=== PATIENT | female | born 1990 | race Caucasian/White ===

== ENCOUNTER 2018-06-25 16:36 | Emergency (ER) | payer SELFPAY ==
[2018-06-25 16:42] VITALS: BP 122/76
--- NOTE | 2018-06-25 17:02 | ER Document Report ---
ED Medical Screen (RME) - General Chief Complaint: Psych Problem Stated Complaint: PSYCH EVAL Time Seen by Provider: 06/25/18 16:59 - HPI Notes: 06/25/18 16:59 Patient is a 28-year-old female with a history of bipolar, PTSD who presents to the ED requesting to be placed back on medications. Patient states that she has been having visual and auditory hallucinations for the last year. She was medicated over the summer, but has been off medicines for 3 months because her Medicaid lapsed. No SI/HI. She is eating and drinking without difficulties. No other concerns or complaints. Denies any headache, fever, head injury, neck pain, changes in vision/speech/hearing, URI, sore throat, chest pain, palpitations, syncope, cough, shortness of breath, wheeze, dyspnea, abdominal pain, nausea/vomiting/diarrhea, urinary retention, dysuria, hematuria, loss of control of bowel or bladder, numbness/tingling, saddle anesthesia, muscle paralysis/weakness, or rash. I have treated and performed a rapid initial assessment of this patient. A comprehensive ED assessment and evaluation of the patient, analysis of test results and completion of medical decision making process will be conducted by additional ED providers. PHYSICAL EXAMINATION: GENERAL: Well-appearing, well-nourished and in no acute distress. A&Ox4. Answers questions appropriately. LUNGS: Breath sounds clear to auscultation bilaterally and equal. No wheezes rales or rhonchi. HEART: Regular rate and rhythm without murmurs, rubs, gallops. Extremities: No cyanosis, clubbing, or edema b/l. Cranial nerves grossly intact. NEUROLOGICAL: Normal speech, normal gait. PSYCH: flat affect - Related Data Allergies/Adverse Reactions: risperidone [From Risperdal] Allergy (Verified 06/25/18 16:51) Past Medical History - Social History Chew tobacco use (# tins/day): No Frequency of alcohol use: Occasional Drug Abuse: Methamphetamine Renal/ Medical History: Denies: Hx Peritoneal Dialysis Psychiatric Medical History: Reports: Hx Bipolar Disorder, Hx Depression Past Surgical History: Reports: Hx Tubal Ligation Physical Exam - Vital signs Vitals: Temp Pulse Resp BP Pulse Ox 98.1 F 95 18 122/76 93 06/25/18 16:40 06/25/18 16:40 06/25/18 16:40 06/25/18 16:40 06/25/18 16:40 Course - Vital Signs Vital signs: Temp Pulse Resp BP Pulse Ox 98.1 F 95 18 122/76 93 06/25/18 16:40 06/25/18 16:40 06/25/18 16:40 06/25/18 16:40 06/25/18 16:40
--- NOTE | 2018-06-25 17:55 | ER Document Report ---
ED Psych Disorder / Suicide - General Chief Complaint: Psych Problem Stated Complaint: PSYCH EVAL Time Seen by Provider: 06/25/18 16:59 Information source: Patient Notes: Patient is a 28-year-old female with past medical history of bipolar disorder, ADHD, and PTSD who presents today from [place] stating she has been out of her medications since March. Patient states she was homeless in [place] and was following a provider named Ashley Alonso. Patient states she was taking Seroquel, trazodone, and BuSpar but have been out of those medications in March secondary to losing her insurance. She states she just recently got back onto the "healthy [place] insurance plan". She states she was at [facility] in [place] and when they discharged her they brought her a bus ticket to [place] so that the patient could live with her father. She has been living with her father since arrival. Patient presents here voluntarily because she states she has been hearing some voices since March. She denies any command hallucinations, suicidal or homicidal ideations. She denies any pain other than to some irritation to her left ear for the last 2 days. She denies any fevers or vomiting, runny nose or congestion, sore throat or cough. - HPI Patient complains to provider of: Other - See above Onset: Other - See above Suicide Risk Factors: Other - See above Situational problems related to: Other - See above Associated symptoms: Other - See above Similar symptoms previously: Yes Recently seen / treated by doctor: No - Related Data Allergies/Adverse Reactions: risperidone [From Risperdal] Allergy (Verified 06/25/18 16:51) Past Medical History - Social History Smoking Status: Current Every Day Smoker Chew tobacco use (# tins/day): No Frequency of alcohol use: Occasional Drug Abuse: Methamphetamine Family History: Reviewed & Not Pertinent Patient has suicidal ideation: No Patient has homicidal ideation: No Renal/ Medical History: Denies: Hx Peritoneal Dialysis Psychiatric Medical History: Reports: Hx Bipolar Disorder, Hx Depression Past Surgical History: Reports: Hx Tubal Ligation Review of Systems - Review of Systems Constitutional: denies: Fever EENT: denies: Eye discharge, Nose discharge Respiratory: denies: Short of breath Gastrointestinal: denies: Vomiting Genitourinary: denies: Dysuria Musculoskeletal: denies: Leg swelling Skin: Other - no hives. denies: Rash Neurological/Psychological: Other - no slurred speech -: Yes All other systems reviewed and negative Physical Exam - Vital signs Vitals: Temp Pulse Resp BP Pulse Ox 98.1 F 95 18 122/76 93 06/25/18 16:40 06/25/18 16:40 06/25/18 16:40 06/25/18 16:40 06/25/18 16:40 Notes: Reviewed vital signs and nursing note as charted by RN. CONSTITUTIONAL: Alert and oriented and responds appropriately to questions. Well -appearing; well-nourished HEAD: Normocephalic; atraumatic EYES: PERRL; Conjunctivae clear, sclerae non-icteric ENT: Normal nose; no rhinorrhea; no external auditory canal lesions; no tympanic membrane lesions; no mastoid tenderness or swelling moist mucous membranes; pharynx without lesions noted NECK: Supple without meningismus; non-tender; no cervical lymphadenopathy, no masses CARD: Regular rate and rhythm; no murmurs; symmetric distal pulses RESP: Normal chest excursion without splinting or tachypnea; breath sounds clear and equal bilaterally; no wheezes, no rhonchi, no rales ABD/GI: Normal bowel sounds; non-distended; soft, non-tender; no palpable organomegaly or masses BACK: The back appears normal and is non-tender to palpation EXT: Normal ROM in all joints; non-tender to palpation; no edema SKIN: No acute lesions noted NEURO: CN 2-12 intact; 5/5 bilateral upper and lower extremity strength with sensation intact to light touch PSYCH: The patient's mood and manner are appropriate. Grooming and personal hygiene are appropriate. Course - Re-evaluation Re-evalutation: 06/25/18 17:54 Given the above history and physical examination I do not believe the patient requires an EKG at this time. Dr. Orellana, the head of the psychology/ psychiatry department here has seen and assessed the patient. She would like to start the patient on her previous medications as well as a low-dose Zyprexa twice a day and have the patient sleep you voluntarily overnight and reassess in the morning. We both believe that if the patient feels better in the morning , patient can be discharged home on the prescriptions with outpatient follow-up that we will help arrange through [facility]. - Vital Signs Vital signs: Temp Pulse Resp BP Pulse Ox 98.1 F 95 18 122/76 93 06/25/18 16:40 06/25/18 16:40 06/25/18 16:40 06/25/18 16:40 06/25/18 16:40
[2018-06-25] MEDS ORDERED: OLANZAPINE 2.5 MG TABLET PO SCH (18:00)
[2018-06-25] MEDS ORDERED: BUSPIRONE HCL 10 MG TABLET PO SCH (18:00)
[2018-06-25 18:16] LABS: ABSOLUTE EOSINOPHILS # (AUTO) 0.1 10^3/uL (0.0-0.6); ABSOLUTE LYMPHOCYTES (AUTO) 2.8 10^3/uL (0.5-4.7); ABSOLUTE MONOCYTES (AUTO) 0.6 10^3/uL (0.1-1.4); ABSOLUTE NEUT (AUTO) 3.6 10^3/uL (1.7-8.2); BASOPHILS % (AUTO) 0.4 % (0-2); HEMATOCRIT 37.2 % (36.0-47.0); HEMOGLOBIN 12.9 g/dL (12.0-15.5); LYMPHOCYTES % (AUTO) 38.8 % (13-45); MEAN CORPUSCULAR HEMOGLOBIN 34.7 pg (27.0-33.4); MEAN CORPUSCULAR HGB CONC 34.7 g/dL (32.0-36.0); MEAN CORPUSCULAR VOLUME 100 fl (80-97); MONOCYTES % (AUTO) 8.8 % (3-13); PLATELET COUNT 371 10^3/uL (150-450); RED BLOOD COUNT 3.72 10^6/uL (3.72-5.28); TOTAL CELLS COUNTED % (AUTO) 100 %; WHITE BLOOD COUNT 7.2 10^3/uL (4.0-10.5)
[2018-06-25] MEDS ORDERED: OLANZAPINE 2.5 MG TABLET ONE (18:24)
--- NOTE | 2018-06-25 18:26 | PSYCHOLOGICAL NOTE ---
Psych Note - Psych Note Date seen by psych provider: 06/25/18 Time seen by psych provider: 17:30 Psych Note: Met with Patient who was brought in by [facility] (Neil Jose), not on papers, after Neil responded and found that Patient has been off her medication for at least one month for Schizophrenia. She reportedly had been binging on Crystal meth with her last use last Wednesday. She has been reportedly hearing voices telling her to harm herself. She recently moved to [place] after the hospital she was in as a Patient in [place] bought her a bus ticket to [place] to be with her father. Patient reported the voices are mild but bothersome and she very much wants to get back on her medications. She indicated her most recent medications included Buspar 5 mg three times per day, Trazadone 100 mg at nedtime and Seroquel 100 mg at bedtime. She reported she has not slept for three nights and is anxious to retart the medications. She stated she will follow up with [facility] upon discharge. Spoke with Yessi Garcia of [facility] who reported the same information that Patient provided. He indicated [facility] will continue to work with Patient and to call [facility]ypon discharge as they will provide transportation. She will see their medication provider upon discharge for ongoing treatment. Patient was alert and oriented to person, place, time, and circumstance. Mood was cooperative and euthymic, with mood congruent affect. She denied suicidal / homicidal ideation, intent or plan. She reported auditory hallucinations but denied visual hallucinations and delusions were absent. Thought processes were linear, rational, and organized. Conversational speech was within normal limits for rate, tone, and prosody. Intellectual abilities were estimated within the average range. Attention and concentration was within normal limits while insight, judgment and impulse control was fair. Patient maintained good eye contact but looked very tired. 1. Schizophrenia by history 2. Methamphetamine Use Disorder, Moderate, Recurrent Medication Recommendation by Psychiatric Provider: 1. Buspar 5 mg twice per day 2. Trazadone 100 mg at bedtime 3. Seroquel 100 mg at bedtime Of note, Patient is allergic to risperdone Impression/ Plan: Patient is voluntary and agreed to stay the night for observation with the initiation of medications. She is cooperative and agreed to current medication regiment. Evaluation took place with Dr. Pelayo, attending ED Physician present. Plan is for Patient to take first doses of medication, be observed overnight and be re-evaluated in the morning. If feeling better, she will be provided crisis numbers and substance abuse information and referred back to [facility] with scripts. ED Physician in agreement with disposition and recommendations.
[2018-06-25 18:36] LABS: ALANINE AMINOTRANSFERASE 25 U/L (9-52); ALBUMIN 4.2 g/dL (3.5-5.0); ALKALINE PHOSPHATASE 22 U/L (38-126); ANION GAP 11 (5-19); ASPARTATE AMINO TRANSFERASE 31 U/L (14-36); BILIRUBIN,DIRECT 0.1 mg/dL (0.0-0.4); BILIRUBIN,TOTAL 0.2 mg/dL (0.2-1.3); BLOOD UREA NITROGEN 10 mg/dL (7-20); CALCIUM 9.2 mg/dL (8.4-10.2); CARBON DIOXIDE 26 mmol/L (22-30); CHLORIDE 105 mmol/L (98-107); GLUCOSE 81 mg/dL (75-110); POTASSIUM 4.1 mmol/L (3.6-5.0); SODIUM 142.4 mmol/L (137-145)
[2018-06-25 18:40] LABS: ACETAMINOPHEN < 10 ug/mL (10-30); ALCOHOL < 10 mg/dL (NONE DETECTED); SALICYLATE < 1.0 mg/dL (2.0-20.0)
[2018-06-25 19:05] LABS: AMORPHOUS SEDIMENT,URINE TRACE /HPF; APPEARANCE,URINE SLIGHTLY-CLOUDY; BILIRUBIN,URINE NEGATIVE (NEGATIVE); COLOR,URINE YELLOW; GLUCOSE, URINE NEGATIVE (NEGATIVE); KETONES,URINE NEGATIVE (NEGATIVE); LEUKOCYTE ESTERASE,URINE NEGATIVE (NEGATIVE); NITRITE,URINE NEGATIVE (NEGATIVE); PROTEIN,URINE 30 mg/dL (NEGATIVE); URINE SPECIFIC GRAVITY 1.018; UROBILINOGEN,URINE NEGATIVE mg/dL (<2.0)
[2018-06-25 19:16] LABS: URINE AMPHETAMINES SCREEN NEGATIVE; URINE BARBITURATES SCREEN NEGATIVE; URINE BENZODIAZEPINES SCREEN NEGATIVE; URINE COCAINE SCREEN NEGATIVE; URINE MARIJUANA (THC) SCREEN NEGATIVE; URINE METHADONE SCREEN NEGATIVE; URINE PHENCYCLIDINE SCREEN NEGATIVE
[2018-06-25] MEDS ORDERED: BENZTROPINE MESYLATE 1 MG TABLET PO SCH (22:00)
[2018-06-25] MEDS ORDERED: TRAZODONE HCL 50 MG TABLET PO SCH (22:00)
[2018-06-25] MEDS ORDERED: QUETIAPINE FUMARATE 100 MG TABLET PO SCH (22:00)
== END 2018-06-25 20:15 | disposition left against medical advice (07) ==
LOC: ER 16:36
DX: F20.9 Schizophrenia, unspecified (principal); T43.596A Underdosing of other antipsychotics and neuroleptics, initial encounter; F31.9 Bipolar disorder, unspecified; T43.216A Underdosing of selective serotonin and norepinephrine reuptake inhibitors, initial encounter; Z91.120 Patient's intentional underdosing of medication regimen due to financial hardship; Z91.14 Patient's other noncompliance with medication regimen; Z53.20 Procedure and treatment not carried out because of patient's decision for unspecified reasons; F15.10 Other stimulant abuse, uncomplicated; F17.200 Nicotine dependence, unspecified, uncomplicated; Z88.8 Allergy status to other drugs, medicaments and biological substances
CPT/HCPCS: 99285; 36415; 80307 ×4; 84703; 85025; 80053; 81001; J3490

== ENCOUNTER 2018-06-30 15:03 | Emergency (ER) | payer SELFPAY ==
--- NOTE | 2018-06-30 16:08 | ER Document Report ---
ED Psych Disorder / Suicide - General Mode of Arrival: Ambulatory TRAVEL OUTSIDE OF THE [place] IN LAST 30 DAYS: No <ELEONORA FREY - Last Filed: 06/30/18 22:41> <DAVIDA SHEPARD - Last Filed: 07/01/18 12:30> <TAYLOR FARAH - Last Filed: 07/01/18 12:52> - General Chief Complaint: Psych Problem Stated Complaint: PSYCH CONSULT Time Seen by Provider: 06/30/18 15:30 - HPI Notes: Patient is a 28-year-old female presenting to the emergency room complaining of worsening anxiety with auditory hallucinations, states that she hears voices all the time, "the writing is on the rai", when I asked her what the voices were saying to her she stated "I do not want to talk about that right now", she denies being in any type of mental health program at this point in time or taking any medications, she denies any pain anywhere, no nausea, vomiting or diarrhea, denies being (ELEONORA FREY) - Related Data Allergies/Adverse Reactions: risperidone [From Risperdal] Allergy (Verified 06/30/18 15:07) Past Medical History - General Information source: Patient - Social History Smoking Status: Current Every Day Smoker Chew tobacco use (# tins/day): No Frequency of alcohol use: None Drug Abuse: None Family History: Reviewed & Not Pertinent Patient has suicidal ideation: No Patient has homicidal ideation: Yes Renal/ Medical History: Denies: Hx Peritoneal Dialysis Psychiatric Medical History: Reports: Hx Bipolar Disorder, Hx Depression Past Surgical History: Reports: Hx Tubal Ligation <ELEONORA FREY - Last Filed: 06/30/18 22:41> Review of Systems - Review of Systems Constitutional: No symptoms reported EENT: No symptoms reported Cardiovascular: No symptoms reported Respiratory: No symptoms reported Gastrointestinal: No symptoms reported Genitourinary: No symptoms reported Female Genitourinary: No symptoms reported Musculoskeletal: No symptoms reported Skin: No symptoms reported Hematologic/Lymphatic: No symptoms reported Neurological/Psychological: See HPI -: Yes All other systems reviewed and negative <ELEONORA FREY - Last Filed: 06/30/18 22:41> Physical Exam - Vital signs Interpretation: Tachycardic - General General appearance: Appears well, Alert - HEENT Head: Normocephalic, Atraumatic Eyes: Normal Pupils: PERRL - Respiratory Respiratory status: No respiratory distress Chest status: Nontender Breath sounds: Normal Chest palpation: Normal - Cardiovascular Rhythm: Regular Heart sounds: Normal auscultation Murmur: No - Abdominal Inspection: Normal Distension: No distension Bowel sounds: Normal Tenderness: Nontender Organomegaly: No organomegaly - Back Back: Normal, Nontender - Extremities General upper extremity: Normal inspection, Nontender, Normal color, Normal ROM , Normal temperature General lower extremity: Normal inspection, Nontender, Normal color, Normal ROM , Normal temperature, Normal weight bearing. No: Ron's sign - Neurological Neuro grossly intact: Yes Cognition: Normal Orientation: AAOx4 [place] Coma Scale Eye Opening: Spontaneous [place] Coma Scale Verbal: Oriented [place] Coma Scale Motor: Obeys Commands [place] Coma Scale Total: 15 Speech: Normal Motor strength normal: LUE, RUE, LLE, RLE Sensory: Normal - Psychological Associated symptoms: Anxious, Labile - Skin Skin Temperature: Warm Skin Moisture: Dry Skin Color: Normal <ELEONORA FREY - Last Filed: 06/30/18 22:41> - Vital signs Vitals: Temp Pulse Resp BP Pulse Ox 98.3 F 106 H 18 123/70 97 06/30/18 15:19 06/30/18 15:19 06/30/18 15:19 06/30/18 15:19 06/30/18 15:19 Course - Laboratory Result Diagrams: 06/30/18 15:44 06/30/18 15:44 - EKG Interpretation by Tx EKG shows normal: Sinus rhythm Rate: Normal Rhythm: NSR <ELEONORA FREY - Last Filed: 06/30/18 22:41> - Laboratory Result Diagrams: 06/30/18 15:44 06/30/18 15:44 <DAVIDA SHEPARD - Last Filed: 07/01/18 12:30> - Laboratory Result Diagrams: 06/30/18 15:44 06/30/18 15:44 <TAYLOR FARAH - Last Filed: 07/01/18 12:52> - Re-evaluation Re-evalutation: 06/30/18 22:41 Patient seen and evaluated by mental health team who recommend involuntary commitment for further evaluation and treatment, paperwork has been signed and placed on the chart, medications have been ordered, patient will remain in the department until mental health team can come up with an appropriate and safe plan for her disposition (ELEONORA FREY) - Vital Signs Vital signs: Temp Pulse Resp BP Pulse Ox 98.2 F 73 16 188/66 H 98 07/01/18 03:31 07/01/18 03:31 07/01/18 03:31 07/01/18 03:31 07/01/18 03:31 - Laboratory Laboratory results interpreted by me: 06/30/18 06/30/18 06/30/18 15:44 15:44 15:44 RBC 3.71 L MCV 100 H MCH 34.5 H Sodium 145.1 H Chloride 108 H Alkaline Phosphatase 24 L Urine Protein 30 H Urine Blood LARGE H Urine Urobilinogen 2.0 H Ur Leukocyte Esterase SMALL H Salicylates < 1.0 L Acetaminophen < 10 L Discharge <ELEONORA FREY - Last Filed: 06/30/18 22:41> <DAVIDA SHEPARD - Last Filed: 07/01/18 12:30> <TAYLOR FARAH - Last Filed: 07/01/18 12:52> - Discharge Clinical Impression: Mental health disorder, Schizophrenia Condition: Stable Disposition: HOME, SELF-CARE Additional Instructions: You have been evaluated both medical and behavioral health teams have been deemed appropriate for discharge. You have been started on medications and have been provided prescriptions for Buspar 5 mg twice per day, Trazadone 100 mg at bedtime and Seroquel 100 mg at bedtime; please take as directed. You are encouraged to follow-up with [facility] in 3-5 days for continued outpatient mental health services. Hallucinations You seem to be having hallucinations. Hallucinations are seeing, hearing, or feeling things that don't exist. These symptoms commonly occur with drug abuse and schizophrenia. Drugs like PCP, LSD, MDMA, peyote, and "psychedelic mushrooms" can cause frightening hallucinations. Users of methamphetamine or crack cocaine often see and feel bugs crawling on their skin. Patients with schizophrenia may hear voices that no one else can hear. The delusions of schizophrenia often involve conspiracies or relationships that are not real. When symptoms are due to drug abuse, the mental state usually improves as the drug wears off. Someone you trust should be with you until you are better, to protect you and calm your fears. Tranquilizer medicine is helpful at controlling hallucinations, anxiety, and deluded thoughts. Get a proper diet and enough sleep. Most patients do very well when they get proper medical treatment and social support. You should return at once if your symptoms get worse, if you are having suicidal thoughts or thoughts about hurting others, or if you feel that you are in danger. Prescriptions: Quetiapine Fumarate [Seroquel 100 mg Tablet] 100 mg PO QHS #7 tablet Trazodone HCl 100 mg PO QHS #7 tablet Buspirone HCl [Buspar 5 mg Tablet] 1 tab PO BID #15 tab Referrals: [facility] [Outside] - Follow up as needed [facility] [Outside] - Follow up in 3-5 days
[2018-06-30 16:20] LABS: ABSOLUTE EOSINOPHILS # (AUTO) 0.1 10^3/uL (0.0-0.6); ABSOLUTE LYMPHOCYTES (AUTO) 2.4 10^3/uL (0.5-4.7); ABSOLUTE MONOCYTES (AUTO) 0.6 10^3/uL (0.1-1.4); ABSOLUTE NEUT (AUTO) 4.8 10^3/uL (1.7-8.2); BASOPHILS % (AUTO) 0.3 % (0-2); EOSINOPHILS % (AUTO) 1.7 % (0-6); HEMATOCRIT 37.1 % (36.0-47.0); HEMOGLOBIN 12.8 g/dL (12.0-15.5); LYMPHOCYTES % (AUTO) 30.1 % (13-45); MEAN CORPUSCULAR HEMOGLOBIN 34.5 pg (27.0-33.4); MEAN CORPUSCULAR HGB CONC 34.5 g/dL (32.0-36.0); MEAN CORPUSCULAR VOLUME 100 fl (80-97); PLATELET COUNT 440 10^3/uL (150-450); RED BLOOD COUNT 3.71 10^6/uL (3.72-5.28); RED CELL DISTRIBUTION WIDTH 12.7 % (11.5-14.0); SEGMENTED NEUTROPHILS % (AUTO) 59.9 % (42-78); TOTAL CELLS COUNTED % (AUTO) 100 %; WHITE BLOOD COUNT 7.9 10^3/uL (4.0-10.5)
[2018-06-30 16:27] LABS: ALANINE AMINOTRANSFERASE 21 U/L (9-52); ALBUMIN 4.5 g/dL (3.5-5.0); ALKALINE PHOSPHATASE 24 U/L (38-126); ANION GAP 11 (5-19); ASPARTATE AMINO TRANSFERASE 26 U/L (14-36); BILIRUBIN,DIRECT 0.1 mg/dL (0.0-0.4); BILIRUBIN,TOTAL 0.3 mg/dL (0.2-1.3); BLOOD UREA NITROGEN 12 mg/dL (7-20); CALCIUM 9.7 mg/dL (8.4-10.2); CARBON DIOXIDE 26 mmol/L (22-30); CHLORIDE 108 mmol/L (98-107); GLUCOSE 99 mg/dL (75-110); POTASSIUM 4.8 mmol/L (3.6-5.0); SODIUM 145.1 mmol/L (137-145); TOTAL PROTEIN 7.3 g/dL (6.3-8.2)
[2018-06-30 16:29] LABS: ACETAMINOPHEN < 10 ug/mL (10-30); ALCOHOL < 10 mg/dL (NONE DETECTED); SALICYLATE < 1.0 mg/dL (2.0-20.0)
[2018-06-30 16:31] LABS: APPEARANCE,URINE CLOUDY; BILIRUBIN,URINE NEGATIVE (NEGATIVE); COLOR,URINE YELLOW; GLUCOSE, URINE NEGATIVE (NEGATIVE); KETONES,URINE NEGATIVE (NEGATIVE); LEUKOCYTE ESTERASE,URINE SMALL (NEGATIVE); NITRITE,URINE NEGATIVE (NEGATIVE); PROTEIN,URINE 30 mg/dL (NEGATIVE); URINE SPECIFIC GRAVITY 1.023
--- NOTE | 2018-06-30 16:32 | PSYCHOLOGICAL NOTE ---
Psych Note - Psych Note Date seen by psych provider: 06/30/18 Time seen by psych provider: 16:15 Psych Note: Reason for Consult: Command auditory hallucinations Patient is a 28-year-old female presenting to the emergency room complaining of worsening anxiety with auditory hallucinations Patient reports that she sometimes thinks of harming herself stating "life is suicide." When asked about thoughts of harming others and she stated "no yes sometimes my dad when he was younger." She reports that she has been sober for 2 months from methamphetamines stating "I am sobriety." She states that she has been in multiple inpatient psychiatric treatments since 4 years old. She endorses auditory hallucinations reporting that they bother her. She reports that there are many of both genders and depending on which way she is looking depends on what they say to her. She also reports that it also depends on who she is talking to him what they are saying. Patient is alert and orientated to person, place, time and circumstance. Mood is euthymic with restricted affect. Patient discloses both suicidal and homicidal ideation that comes and goes. When asked that she has a plan she states "sometimes." Patient reports command auditory hallucinations. She reports that it depends on which direction she is looking in who she is talking to on what they say. Patient reports 2 weeks of sobriety. Patient appears very tired with dark circles under her eyes. Speech is slightly pressured. Patient is making poor eye contact and is noted to be looking around the room specifically up into the corner. Intellectual abilities appear to be within the average range. Attention and concentration are poor. Insight, judgment, impulse control are currently poor. Medication Recommendation by Psychiatric Provider: 1. Buspar 5 mg twice per day 2. Trazadone 100 mg at bedtime 3. Seroquel 100 mg at bedtime Diagnosis 1. 295.90 (F20.9) Schizophrenia by history 2. 304.40 (F15.20) Methamphetamine Use Disorder, Moderate, Recurrent Impression/Plan: Patient is recommended for IVC. She reports command auditory hallucinations telling she to kill people. When patient is asked if she has thoughts of harming herself she states sometimes then states "life is suicide." Patient is demonstrating slightly pressured speech and difficulty in an organized linear conversation with times of odd comments. Patient's eye contact is poor and is noted to be looking around the room specifically multiple times in the corner ceiling area. Medication recommendations have been provided; patient will be reevaluated. Dr. Orellana was consulted and the care and management of this patient; attending physicians in agreement with recommendations and disposition.
[2018-06-30 16:43] LABS: URINE AMPHETAMINES SCREEN NEGATIVE; URINE BARBITURATES SCREEN NEGATIVE; URINE BENZODIAZEPINES SCREEN NEGATIVE; URINE COCAINE SCREEN NEGATIVE; URINE MARIJUANA (THC) SCREEN NEGATIVE; URINE METHADONE SCREEN NEGATIVE; URINE PHENCYCLIDINE SCREEN NEGATIVE
[2018-06-30] MEDS: BUSPIRONE HCL 10 MG TABLET PO SCH (17:32)
--- NOTE | 2018-06-30 19:03 | EKG REPORT ---
SEVERITY:- NORMAL ECG - SINUS RHYTHM : Confirmed by: Jad Chavarria MD 30-Jun-2018 19:02:38
[2018-06-30] MEDS ORDERED: TRAZODONE HCL 50 MG TABLET PO SCH (22:00)
[2018-06-30] MEDS ORDERED: QUETIAPINE FUMARATE 100 MG TABLET PO SCH (22:00)
[2018-07-01] MEDS: BUSPIRONE HCL 10 MG TABLET PO SCH (09:56)
[2018-07-01 13:01] VITALS: BP 128/70
--- NOTE | 2018-07-01 15:44 | PSYCHOLOGICAL NOTE ---
Psych Note - Psych Note Date seen by psych provider: 07/01/18 Time seen by psych provider: 07:45 Psych Note: Reason for Consult: Command auditory hallucinations Patient is a 28-year-old female presenting to the emergency room complaining of worsening anxiety with auditory hallucinations Check in conducted with patient Patient reports that she slept well last night however feels still tired. When asked if she has had any more events of hearing voices she states no disclosing the last time was yesterday before coming into [facility] ED. Patient denies current thoughts of suicidal ideation or homicidal ideation 1 asked by her statements of wanting to harm others she reports that she did not mean that she would hurt anybody only that sometimes she gets so frustrated she wants to hurt somebody because of the voices. She states she is ready to continue her medications and go with her follow-up appointments with [facility]. Patient's speech was normal rate tone and prosody. She had good eye contact with organized and linear thought processes. Medication Recommendation by Psychiatric Provider: 1. Buspar 5 mg twice per day 2. Trazadone 100 mg at bedtime 3. Seroquel 100 mg at bedtime Diagnosis 1. 295.90 (F20.9) Schizophrenia by history 2. 304.40 (F15.20) Methamphetamine Use Disorder, Moderate, Recurrent Impression/Plan: Patient is recommended for rescind of IVC and is cleared from acute psychiatric services. Patient denies thoughts of wanting to harm herself or others. She reports she has not had any difficulties with hearing voices since arriving to [facility] and recieving medications. There are no behaviours indicating she is responding to internal stimuli as the patient's speech was within normal rate, tone and prosody she had a good eye contact with organized and linear conversations. She reports that she will continue taking the medication will follow up with outpatient mental health services through [facility]. Dr. Orellana was consulted and the care and management of this patient; attending physicians in agreement with recommendations and disposition.
== END 2018-07-01 13:01 | disposition home or self-care (01) ==
LOC: ER 15:03
DX: F99 Mental disorder, not otherwise specified (principal); F20.9 Schizophrenia, unspecified; F41.9 Anxiety disorder, unspecified; F17.200 Nicotine dependence, unspecified, uncomplicated
CPT/HCPCS: 36415; 80053; 80307; 81001; 85025; 93005; 93010; 99285

== ENCOUNTER 2019-02-18 04:44 | Emergency (ER) | payer SELFPAY ==
--- NOTE | 2019-02-18 06:14 | ER Document Report ---
HPI - HPI Time Seen by Provider: 02/18/19 06:06 Pain Level: 5 Context: Patient is a 28-year-old female who presents to the emergency department with a chief complaint of a toothache to tooth #14. Patient states that the tooth has been bothering her for the past 3 weeks. [facility], but has not been able to get an appointment. She states that she has been taking ibuprofen and Tylenol and has been helping with the pain, but yesterday she felt the tip of her tooth come out and continues to have pain. Patient is a current everyday smoker. She is currently on Seroquel, trazodone, buspirone. - ROS Notes: REVIEW OF SYSTEMS: CONSTITUTIONAL : Denies recent illness. Denies recent unintentional weight loss. Denies fever, chills, or sweats. EENT: See HPI CARDIOVASCULAR: Denies chest pain. RESPIRATORY: Denies shortness of breath, cough, congestion, difficulty breathing, or wheezing. GASTROINTESTINAL: Denies nausea, vomiting, and diarrhea. Denies abdominal pain. Denies constipation. GENITOURINARY: Denies difficulty urinating, burning, blood in urine, urgency or frequency. MUSCULOSKELETAL: Denies neck and back pain. Denies joint pain or swelling. SKIN: Denies rash, itchiness, or lesions HEMATOLOGIC : Denies easy bruising or bleeding. LYMPHATIC: Denies swollen, painful, enlarged glands. NEUROLOGICAL: Denies no numbness or tingling denies weakness. Denies headache. Denies altered mental status. Denies alteration in speech. PSYCHIATRIC: Denies stress, anxiety, alteration in sleep patterns, or depression. All other systems reviewed and negative. - REPRODUCTIVE Reproductive: DENIES: : Past Medical History - General Information source: Patient - Social History Smoking Status: Current Every Day Smoker Chew tobacco use (# tins/day): No Frequency of alcohol use: None Drug Abuse: None Family History: Reviewed & Not Pertinent Patient has suicidal ideation: No Patient has homicidal ideation: No Renal/ Medical History: Denies: Hx Peritoneal Dialysis Psychiatric Medical History: Reports: Hx Bipolar Disorder, Hx Depression Past Surgical History: Reports: Hx Tubal Ligation Vertical Provider Document - CONSTITUTIONAL Notes: PHYSICAL EXAMINATION: GENERAL: Appears well, healthy, well-nourished, no acute distress. HEAD: Normocephalic, atraumatic. EYES: PERRL, conjunctiva normal, all extraocular movements intact, sclera nonicteric ENT: Moist mucous membranes. Tenderness noted to tooth #14. NECK: Supple, no noticeable swelling, redness, rash. Normal range of motion. LUNGS: Equal breath sounds bilaterally and clear to auscultation. No wheezes rales or rhonchi. CARDIOVASCULAR: S1-S2, regular rate, regular rhythm. Radial pulses 2+, normal. PSYCH: Normal mood, normal affect. SKIN: Warm, dry. No rash, lesions, ulcerations noted. Normal skin turgor. - INFECTION CONTROL TRAVEL OUTSIDE OF THE [place] IN LAST 30 DAYS: No Course - Re-evaluation Re-evalutation: 02/18/19 06:14 Patient's physical exam and history is most consistent with a infected tooth. Patient is able to swallow, no facial swelling noted, airways pain, vital signs are normal. I do not suspect Raúl's angina, peritonsilar abscess, or airway obstruction. The patient will be started on oral antibiotics. I have given the patient education on their antibiotics. Patient was given instructions to follow-up with a dentist this week. Return precautions were given. Verbal discharge instructions were given. Patient verbalized understanding. Patient is stable for discharge. - Vital Signs Vital signs: Temp Pulse Resp BP Pulse Ox 98.1 F 85 16 115/61 98 02/18/19 04:48 02/18/19 04:48 02/18/19 04:48 02/18/19 04:48 02/18/19 04:48 Discharge - Discharge Clinical Impression: Toothache Condition: Stable Disposition: HOME, SELF-CARE Instructions: Toothache ([facility]) Additional Instructions: You have been seen in the emergency department for a toothache. You may take ibuprofen 600 mg and Tylenol 1000 mg every 6 hours as needed for the pain. You have also been given topical lidocaine. Placed that to the affected tooth as needed to help with pain. You have also been prescribed antibiotics. Please take the antibiotics as prescribed, even if you start to feel better. If you develop a fever greater than 100.4 F, or have any symptoms that are worrisome to you, please return to the emergency department. Please follow-up with a dentist this week in regards to your visit. Prescriptions: Penicillin V Potassium [Penicillin Vk 500 mg Tablet] 500 mg PO BID #20 tablet
[2019-02-18] MEDS ORDERED: LIDOCAINE 2% VISCOUS SOLN 20 ML UDCUP PO ONE (06:16)
[2019-02-18] MEDS ORDERED: PENICILLIN V POTASSIUM 500 MG TABLET PO ONE (06:16)
[2019-02-18 07:27] VITALS: BP 105/62
== END 2019-02-18 06:34 | disposition home or self-care (01) ==
LOC: ER 04:44
DX: K08.9 Disorder of teeth and supporting structures, unspecified (principal); F17.200 Nicotine dependence, unspecified, uncomplicated; Z98.51 Tubal ligation status
CPT/HCPCS: 99282; J3490

== ENCOUNTER 2020-05-12 17:30 | Emergency (ER) | payer SELFPAY ==
[2020-05-12 17:38] VITALS: BP 82/66
--- NOTE | 2020-05-12 18:05 | ER Document Report ---
HPI - HPI Patient complains to provider of: right ear pain Time Seen by Provider: 05/12/20 17:58 Pain Level: 3 Context: 29-year-old female with no previous medical problems presents to the emergency room complaining of right ear pain for the past week. Denies any fevers. Denies any trauma or injury. No recent swimming or flying. States she has been using hydrogen peroxide without relief. No recent antibiotics. Denies any antibiotics. Associated Symptoms: None Exacerbated by: Denies Relieved by: Denies Similar symptoms previously: No Recently seen / treated by doctor: No - ROS Systems Reviewed and Negative: Yes All other systems reviewed and negative - CONSTITUTIONAL Constitutional: DENIES: Fever - EENT EENT: REPORTS: Ear Pain. DENIES: Sore Throat - NEURO Neurology: DENIES: Headache - RESPIRATORY Respiratory: DENIES: Trouble Breathing, Coughing - REPRODUCTIVE Reproductive: DENIES: : Past Medical History - General Information source: Patient - Social History Smoking Status: Current Every Day Smoker Frequency of alcohol use: None Drug Abuse: None Family History: Reviewed & Not Pertinent Renal/ Medical History: Denies: Hx Peritoneal Dialysis Psychiatric Medical History: Reports: Hx Bipolar Disorder, Hx Depression Past Surgical History: Reports: Hx Tubal Ligation Vertical Provider Document - CONSTITUTIONAL Agree With Documented VS: Yes Exam Limitations: No Limitations General Appearance: Mild Distress - INFECTION CONTROL TRAVEL OUTSIDE OF THE [place] IN LAST 30 DAYS: No - HEENT HEENT: Atraumatic, Normocephalic, Tympanic Membrane Red, Tympanic Membrane Bulging - Right tympanic membranes is erythematous and bulging. Right outer ear canal erythematous and swelling but no active discharge or draining noted. Left tympanic membrane is intact. Left outer ear canal without erythema or swelling.. negative: Pharyngeal Exudate, Pharyngeal Tenderness, Pharyngeal Erythema - NECK Neck: Normal Inspection, Supple - RESPIRATORY Respiratory: Breath Sounds Normal, No Respiratory Distress - CARDIOVASCULAR Cardiovascular: Regular Rate, Regular Rhythm, No Murmur - MUSCULOSKELETAL/EXTREMETIES Musculoskeletal/Extremeties: Non-Tender - NEURO Level of Consciousness: Awake, Alert Motor/Sensory: No Motor Deficit, No Sensory Deficit - DERM Integumentary: Warm, Dry, No Rash Course - Re-evaluation Re-evalutation: 05/12/20 18:02 Reviewed diagnosis with patient. Counseled to use eardrops and take oral antibiotics as prescribed. Tylenol and/or Motrin for pain. Follow-up with primary care physician if not improving in 2 to 3 days. Patient was given strict return to the emergency room guidelines. Return for any new or worsening symptoms. All questions were answered. Patient verbalized understanding and agrees with plan of care. - Vital Signs Vital signs: Temp Pulse Resp BP Pulse Ox 98.0 F 80 20 82/66 L 100 05/12/20 17:37 05/12/20 17:37 05/12/20 17:37 05/12/20 17:37 05/12/20 17:37 Discharge - Discharge Clinical Impression: Right otitis media Qualifiers: Otitis media type: unspecified Qualified Code(s): H66.91 - Otitis media, unspecified, right ear Right otitis externa Qualifiers: Otitis externa type: unspecified type Chronicity: acute Qualified Code(s): H60.501 - Unspecified acute noninfective otitis externa, right ear Condition: Stable Disposition: HOME, SELF-CARE Instructions: Use of Ear Drops ([facility]), Otitis Externa ([facility]), Otitis Media ([facility]) Additional Instructions: Use eardrops and take antibiotics as prescribed. Tylenol and or Motrin as needed for pain. Recheck with your primary care physician if not improving in 2 to 3 days. Return to the emergency room for any new or worsening symptoms. Prescriptions: Amoxicillin 1 tab PO TID #30 tab Neomy Sulf/Polymyx B Sulf/Hc [Cortisporin Otic Susp] 4 drop RT_EAR QID #1 bottle Forms: Return to Work
== END 2020-05-12 18:00 | disposition home or self-care (01) ==
LOC: ER 17:30
DX: H66.91 Otitis media, unspecified, right ear (principal); H60.501 Unspecified acute noninfective otitis externa, right ear; H92.01 Otalgia, right ear; F17.200 Nicotine dependence, unspecified, uncomplicated
CPT/HCPCS: 99283